=== PATIENT | female | born 1965 | race Two or more races ===

== ENCOUNTER 2023-12-01 13:40 | Emergency (ER) | payer OTHER ==
[~2023-12-01] VITALS: Ht 147.3 cm; Wt 54.4 kg
[2023-12-01] MEDS ORDERED: CEFTRIAXONE SODIUM 1,000 MG VIAL IV STA (15:08)
[2023-12-01] MEDS ORDERED: CEFTRIAXONE SODIUM 1,000 MG VIAL ONE (15:26)
== END 2023-12-01 15:36 | disposition home or self-care (01) ==
LOC: ER 13:41
DX: L03.119 Cellulitis of unspecified part of limb (principal); L02.619 Cutaneous abscess of unspecified foot